=== PATIENT | female | born 1950 | race Caucasian/White ===

== ENCOUNTER 2022-01-26 12:44 | Outpatient (CLI) | payer OTHER | END 2022-01-26 19:31 | disposition home or self-care (01) | LOC: SCA 12:44 | PROVIDERS: ATTEND Internal Medicine Critical Care Medicine | DX: R91.1 Solitary pulmonary nodule (principal); J44.9 Chronic obstructive pulmonary disease, unspecified; R06.00 Dyspnea, unspecified; R09.02 Hypoxemia | CPT/HCPCS: 36600; 82803-TC ==